=== PATIENT | female | born 1965 | race Caucasian/White ===

== ENCOUNTER 2017-05-06 07:18 | Inpatient (IN) | payer MEDICARE ==
[~2017-05-06] VITALS: Ht 167.6 cm; Wt 141.8 kg
[2017-05-06] MEDS ORDERED: SODIUM CHLORIDE 0.9% 1,000 ML IV ONE ×2 (07:23→10:41)
[2017-05-06] MEDS ORDERED: SODIUM CHLORIDE FLUSH 10ML SYR IVF ONE (07:30)
[2017-05-06] MEDS ORDERED: SODIUM CHLORIDE 0.9% 1,000ML IVBOLUS ONE ×2 (07:30→12:00)
[2017-05-06 08:24] LABS: HEMATOCRIT 26.6 % (34.6-47.8); HEMOGLOBIN 9.1 g/dL (11.7-16.4); PH, VENOUS 7.352 pH (7.320-7.420); WHITE BLOOD COUNT 10.1 x10^3/uL (3.4-10)
[2017-05-06 08:25] LABS: FIO2 NOT DOCUMENTED %
[2017-05-06 08:33] LABS: ASPARTATE AMINO TRANSFERASE 30 U/L (15-37); BLOOD UREA NITROGEN 49 mg/dL (7-18)
[2017-05-06] MEDS ORDERED: OXYC-307 PO (08:56)
[2017-05-06] MEDS ORDERED: MECL-76 PO (08:57)
[2017-05-06] MEDS ORDERED: VALS1TAB3 PO (08:58)
[2017-05-06] MEDS ORDERED: CYCL5TAB PO (08:58)
[2017-05-06] MEDS ORDERED: MONT10TA9 PO (08:59)
[2017-05-06] MEDS ORDERED: LORA10TA62 PO (08:59)
[2017-05-06] MEDS ORDERED: PREG100C PO (09:01)
[2017-05-06] MEDS ORDERED: CLON0.2T PO (09:01)
[2017-05-06] MEDS ORDERED: TOPI50TA35 PO (09:03)
[2017-05-06] MEDS ORDERED: LIOT5TAB10 PO (09:04)
[2017-05-06] MEDS ORDERED: FURO-93 PO (09:05)
[2017-05-06] MEDS ORDERED: LEVO175T5 PO (09:05)
[2017-05-06] MEDS ORDERED: POTA20PA PO (09:06)
[2017-05-06] MEDS ORDERED: LORA0.5T PO (09:07)
[2017-05-06] MEDS ORDERED: METF500T27 PO (09:08)
[2017-05-06] MEDS ORDERED: SODIUM CHLORIDE FLUSH 10ML SYR IVF PRN (11:00)
[2017-05-06] MEDS ORDERED: SODIUM CHLORIDE 0.9% 1,000 ML IV SCH (11:46)
[2017-05-06] MEDS ORDERED: ACETAMINOPHEN 325 MG TABLET PO PRN ×2 (12:00→20:00)
[2017-05-06] MEDS ORDERED: TEMAZEPAM 15 MG CAPSULE PO PRN (12:00)
[2017-05-06] MEDS ORDERED: ONDANSETRON 2MG/ML, 2ML IVPush PRN ×2 (12:00→20:00)
[2017-05-06] MEDS ORDERED: INSULIN DETEMIR 100 UNITS/ML, PEN SQ-INSULIN ONE (12:00)
[2017-05-06 12:30] VITALS: BP 108/72
[2017-05-06 12:39] LABS: BLOOD UREA NITROGEN 50 mg/dL (7-18)
[2017-05-06 13:07] VITALS: BP 108/72
[2017-05-06] MEDS: INSULIN ASPART 100 UNITS/ML, PEN SQ-INSULIN SCH ×3 (13:35→21:26)
[2017-05-06 14:58] LABS: TOTAL IRON BINDING CAPACITY 312 mcg/dL (250-450); TRANSFERRIN 246 mg/dL (200-360)
[2017-05-06] MEDS ORDERED: GLUCAGON 1 MG IM PRN ×2 (15:00→20:00)
[2017-05-06] MEDS ORDERED: DEXTROSE 4 GM TAB.CHEW PO PRN ×2 (15:00→20:00)
[2017-05-06] MEDS: SODIUM CHLORIDE 0.9% 1,000 ML IV SCH ×2 (15:00→23:53)
[2017-05-06] MEDS ORDERED: DEXTROSE 50%, 50ML SYRINGE IVPush PRN (15:00)
[2017-05-06 15:23] LABS: FERRITIN 83.3 ng/mL (8-252)
[2017-05-06] MEDS: OXYcodone/APAP 10/325MG TABLET PO SCH ×2 (17:05→21:24)
[2017-05-06] MEDS: MECLIZINE CHEWABLE 25 MG TAB PO SCH ×2 (17:05→21:24)
[2017-05-06] MEDS ORDERED: SODIUM CHLORIDE FLUSH 10ML SYR IVF SCH (21:00)
[2017-05-06 21:18] VITALS: BP 137/82
[2017-05-06] MEDS: SODIUM CHLORIDE FLUSH 10ML SYR IVF SCH (21:23)
[2017-05-06] MEDS: CYCLOBENZAPRINE 10 MG TABLET PO SCH (21:24)
[2017-05-06] MEDS: PREGABALIN 100 MG CAPSULE PO SCH (21:24)
[2017-05-06] MEDS: TOPIRAMATE 100 MG TABLET PO SCH (21:25)
[2017-05-06] MEDS: HEPARIN 5,000 UNITS/ML, 1ML SQ SCH (21:25)
[2017-05-06] MEDS: TEMAZEPAM 15 MG CAPSULE PO PRN (21:26)
[2017-05-07 02:08] VITALS: BP 125/77
[2017-05-07 05:20] LABS: ASPARTATE AMINO TRANSFERASE 76 U/L (15-37); BLOOD UREA NITROGEN 37 mg/dL (7-18)
[2017-05-07] MEDS: HEPARIN 5,000 UNITS/ML, 1ML SQ SCH ×3 (05:21→21:13)
[2017-05-07] MEDS: MECLIZINE CHEWABLE 25 MG TAB PO SCH ×4 (05:21→21:13)
[2017-05-07 08:16] VITALS: BP 137/82
[2017-05-07] MEDS: INSULIN ASPART 100 UNITS/ML, PEN SQ-INSULIN SCH ×4 (08:23→21:15)
[2017-05-07] MEDS: SODIUM CHLORIDE FLUSH 10ML SYR IVF SCH ×2 (08:24→21:00)
[2017-05-07] MEDS: LORATADINE 10 MG TABLET PO SCH (08:24)
[2017-05-07] MEDS: LORazepam 0.5MG TABLET PO SCH (08:24)
[2017-05-07] MEDS: LIOTHYRONINE 5 MCG TABLET PO SCH (08:24)
[2017-05-07] MEDS: CYCLOBENZAPRINE 10 MG TABLET PO SCH (08:25)
[2017-05-07] MEDS: LEVOTHYROXINE 175 MCG TABLET PO SCH (08:25)
[2017-05-07] MEDS: OXYcodone/APAP 10/325MG TABLET PO SCH ×3 (08:25→21:13)
[2017-05-07] MEDS: PREGABALIN 100 MG CAPSULE PO SCH ×2 (08:25→21:13)
[2017-05-07] MEDS: MONTELUKAST 10 MG TABLET PO SCH (08:25)
[2017-05-07] MEDS: TOPIRAMATE 100 MG TABLET PO SCH ×2 (08:25→21:14)
[2017-05-07] MEDS ORDERED: LEVOTHYROXINE 175 MCG TABLET PO SCH (09:00)
[2017-05-07] MEDS ORDERED: LIOTHYRONINE 5 MCG TABLET PO SCH (09:00)
[2017-05-07] MEDS ORDERED: LORATADINE 10 MG TABLET PO SCH (09:00)
[2017-05-07] MEDS ORDERED: MONTELUKAST 10 MG TABLET PO SCH (09:00)
[2017-05-07] MEDS ORDERED: LORazepam 0.5MG TABLET PO SCH (09:00)
[2017-05-07] MEDS: SODIUM CHLORIDE 0.9% 1,000 ML IV SCH ×2 (10:47→21:30)
[2017-05-07 15:16] VITALS: BP 126/80
[2017-05-07] MEDS ORDERED: CYCLOBENZAPRINE 10 MG TABLET PO PRN (18:30)
[2017-05-07] MEDS: INSULIN DETEMIR 100 UNITS/ML, PEN SQ-INSULIN SCH (18:44)
[2017-05-07 19:31] VITALS: BP 132/82
[2017-05-07] MEDS: TEMAZEPAM 15 MG CAPSULE PO PRN (21:13)
[2017-05-08 02:06] VITALS: BP 127/84
[2017-05-08 04:53] LABS: BLOOD UREA NITROGEN 25 mg/dL (7-18)
[2017-05-08] MEDS: MECLIZINE CHEWABLE 25 MG TAB PO SCH (05:32)
[2017-05-08] MEDS: HEPARIN 5,000 UNITS/ML, 1ML SQ SCH ×3 (05:32→22:51)
[2017-05-08] MEDS: LEVOTHYROXINE 175 MCG TABLET PO SCH (05:32)
[2017-05-08] MEDS: SODIUM CHLORIDE 0.9% 1,000 ML IV SCH ×2 (05:37→17:56)
[2017-05-08 07:53] VITALS: BP 162/94
[2017-05-08] MEDS: INSULIN DETEMIR 100 UNITS/ML, PEN SQ-INSULIN SCH ×2 (08:47→18:44)
[2017-05-08] MEDS: OXYcodone/APAP 10/325MG TABLET PO SCH (08:48)
[2017-05-08] MEDS: LIOTHYRONINE 5 MCG TABLET PO SCH (08:48)
[2017-05-08] MEDS: LORazepam 0.5MG TABLET PO SCH (08:48)
[2017-05-08] MEDS: SODIUM CHLORIDE FLUSH 10ML SYR IVF SCH ×2 (08:48→22:51)
[2017-05-08] MEDS: INSULIN ASPART 100 UNITS/ML, PEN SQ-INSULIN SCH ×4 (08:48→22:51)
[2017-05-08] MEDS: TOPIRAMATE 100 MG TABLET PO SCH ×2 (08:49→22:50)
[2017-05-08] MEDS: LORATADINE 10 MG TABLET PO SCH (08:49)
[2017-05-08] MEDS: PREGABALIN 100 MG CAPSULE PO SCH ×2 (08:49→22:51)
[2017-05-08] MEDS: MONTELUKAST 10 MG TABLET PO SCH (08:49)
[2017-05-08 16:00] VITALS: BP 139/87
[2017-05-08 19:34] VITALS: BP 132/88
[2017-05-09 02:00] VITALS: BP 154/87
[2017-05-09] MEDS: LEVOTHYROXINE 175 MCG TABLET PO SCH (05:43)
[2017-05-09] MEDS: HEPARIN 5,000 UNITS/ML, 1ML SQ SCH ×2 (05:43→12:31)
[2017-05-09 06:15] LABS: BLOOD UREA NITROGEN 18 mg/dL (7-18)
[2017-05-09 07:54] VITALS: BP 138/83
[2017-05-09] MEDS: INSULIN ASPART 100 UNITS/ML, PEN SQ-INSULIN SCH ×3 (08:24→16:12)
[2017-05-09] MEDS: INSULIN DETEMIR 100 UNITS/ML, PEN SQ-INSULIN SCH (08:24)
[2017-05-09] MEDS: PREGABALIN 100 MG CAPSULE PO SCH (08:25)
[2017-05-09] MEDS: MONTELUKAST 10 MG TABLET PO SCH (08:25)
[2017-05-09] MEDS: LIOTHYRONINE 5 MCG TABLET PO SCH (08:26)
[2017-05-09] MEDS: LORATADINE 10 MG TABLET PO SCH (08:26)
[2017-05-09] MEDS: SODIUM CHLORIDE FLUSH 10ML SYR IVF SCH (08:27)
[2017-05-09] MEDS: TOPIRAMATE 100 MG TABLET PO SCH (08:34)
[2017-05-09] MEDS: SODIUM CHLORIDE 0.9% 1,000 ML IV SCH (10:27)
[2017-05-09 14:39] VITALS: BP 132/85
[2017-05-09] MEDS ORDERED: INSU100V13 SQ (15:41)
== END 2017-05-09 17:27 | disposition home or self-care (01) | DRG 70 ==
LOC: ED 08:00 → EDIP 10:41 → 4WST 12:01
PROVIDERS: ADMIT Internal Medicine; ATTEND Hospitalist
DX: G93.40 Encephalopathy, unspecified (principal); N17.0 Acute kidney failure with tubular necrosis; E44.0 Moderate protein-calorie malnutrition; D69.6 Thrombocytopenia, unspecified; I11.0 Hypertensive heart disease with heart failure; E11.65 Type 2 diabetes mellitus with hyperglycemia; I50.9 Heart failure, unspecified; Z68.43 Body mass index [BMI] 50.0-59.9, adult; R56.9 Unspecified convulsions; W19.XXXA Unspecified fall, initial encounter; D63.8 Anemia in other chronic diseases classified elsewhere; D72.829 Elevated white blood cell count, unspecified; E03.9 Hypothyroidism, unspecified; E66.9 Obesity, unspecified; J44.9 Chronic obstructive pulmonary disease, unspecified; Z79.84 Long term (current) use of oral hypoglycemic drugs; Z82.49 Family history of ischemic heart disease and other diseases of the circulatory system; Z83.3 Family history of diabetes mellitus; Z86.711 Personal history of pulmonary embolism; Z90.710 Acquired absence of both cervix and uterus; Y92.002 Bathroom of unspecified non-institutional (private) residence as the place of occurrence of the external cause; T50.2X5A Adverse effect of carbonic-anhydrase inhibitors, benzothiadiazides and other diuretics, initial encounter
CPT/HCPCS: 36415; 70450; 71010; 76770; 80048; 80053; 81001; 82010; 82040; 82550; 82607; 82728; 82746; 82803; 82962; 83036; 83540; 83550; 83690; 83735; 83880; 84100; 84443; 84466; 85025; 87040; 93005; 93306; 93970; 96360; 96361; J1644; J1815; 92523-GN; J7030